=== PATIENT | female | born 1995 | race Caucasian/White ===

== ENCOUNTER 2024-12-30 18:10 | Emergency (ER) | payer MEDICAID ==
[~2024-12-30] VITALS: Ht 167.6 cm; Wt 70.0 kg
[2024-12-30 18:13] VITALS: O2SAT 98
[2024-12-30 20:21] LABS: BASOPHILS % 0.8 % (0.0-2.0); EOSINOPHILS % 1.5 % (0.0-5.0); HEMATOCRIT. 36.2 % (36.0-48.0); HEMOGLOBIN. 12.1 g/dL (12.0-16.0); LYMPHOCYTES % 16.8 % (20.0-50.0); MEAN PLATELET VOLUME 8.3 fl (7.4-10.4); MONOCYTES % 4.9 % (2.0-8.0); NEUTROPHILS % 76.0 % (40.0-76.0); PLATELET 324 x1000/uL (130-400); RED BLOOD CELL COUNT 4.22 mill/uL (4.2-5.4); RED CELL DISTRIBUTION WIDTH 14.9 % (11.6-14.6)
[2024-12-30 20:31] LABS: HCG SCREEN NEGATIVE
[2024-12-30 20:35] LABS: CREATININE 0.8 mg/dL (0.6-1.0); ETHANOL BLOOD < 10 mg/dL (<10); UREA NITROGEN BLOOD 8 mg/dL (9-23)
[2024-12-30] MEDS: LORAZEPAM 2MG/ML UD SYRINGE IM SCH (21:11)
[2024-12-30 21:23] LABS: *AMPHETAMINES SCREEN URINE PRESUMPTIVE POSITIVE (NEGATIVE)
[2024-12-30 21:24] LABS: *BARBITURATES SCREEN URINE NEGATIVE (NEGATIVE); *BENZODIAZEPINES SCREEN URINE NEGATIVE (NEGATIVE); *COCAINE SCREEN URINE NEGATIVE (NEGATIVE); CANNABINOID URINE SCREEN PRESUMPTIVE POSITIVE (NEGATIVE); ECSTASY MDMA SCREEN URINE CONF.TEST INDICATED (NEGATIVE); METHADONE URINE SCREEN NEGATIVE (NEGATIVE); OPIATES URINE SCREEN NEGATIVE (NEGATIVE); PHENCYCLIDINE URINE SCREEN NEGATIVE (NEGATIVE)
[2024-12-31] MEDS ORDERED: DIPHENHYDRAMINE 50MG CAPSULE PO ONE (04:00)
[2024-12-31] MEDS: DIPHENHYDRAMINE 25MG CAPSULE PO NR (04:04)
[2024-12-31] MEDS: ACETAMINOPHEN 325MG TABLET PO ONE (04:05)
[2024-12-31 06:00] VITALS: TEMP 36.8
[2024-12-31 10:09] VITALS: BP 118/72; PULSE 68; RESP 16; O2SAT 100
== END 2024-12-31 10:10 | disposition home or self-care (01) ==
LOC: ER 18:10
DX: F15.10 Other stimulant abuse, uncomplicated (principal); E11.9 Type 2 diabetes mellitus without complications; E78.00 Pure hypercholesterolemia, unspecified; F22 Delusional disorders; F41.9 Anxiety disorder, unspecified; Z04.89 Encounter for examination and observation for other specified reasons; Z79.899 Other long term (current) drug therapy; Z20.822 Contact with and (suspected) exposure to COVID-19
CPT/HCPCS: 80305; 80048; 80307; 80329; 80320; 84703; 85025; 36415; 93005; 96372; 99285; 87426; J2060; Q0163; G0480